=== PATIENT | male | born 1965 | race Caucasian/White ===

== ENCOUNTER → 2016-06-30 | Outpatient (CLI) | payer BC ==
--- NOTE | 2016-06-30 12:38 | CONS ---
DATE OF CONSULTATION: 06/30/2016 CONSULTATION/NEW PATIENT EVALUATION A 50-year-old gentleman who has been evaluated in the sleep center for obstructive sleep apnea-hypopnea syndrome. HISTORY OF PRESENT ILLNESS/SLEEP-WAKE EVALUATION: Patient had been diagnosed with obstructive sleep apnea about 5 years ago was started on treatment with CPAP at that time but was not able to use CPAP equipment secondary to technical problem and stopped using in several weeks. SLEEP SCHEDULE: Presently, his sleep schedule from 9 p.m. to 5:15 a.m. on working days and from around 10 p.m. to 6 a.m. on weekend. FALLING ASLEEP: No problem with falling asleep. No TV in bedroom. DURING SLEEP: He sleeps in different positions with loud snoring and witnessed episodes of stopped breathing during sleep by his . DURING THE DAY/WAKE STATE: In the morning, he wakes up tired, has difficulties to pay attention, irritability. [place] Sleepiness Scale is 8. No history of hypnagogic hallucinations, sleep paralysis or cataplexy. PAST MEDICAL HISTORY: Positive for hypertension, hyperlipidemia, acid reflux. PAST SURGICAL HISTORY: Cholecystectomy, hiatal hernia repair. MEDICATIONS: Lipitor, lisinopril. SOCIAL HISTORY: Negative for smoking. Alcohol consumption up to 2 times per week one pint of whiskey. FAMILY HISTORY: Hypertension, hyperlipidemia, emphysema, sleep apnea, snoring, pneumonia, insomnia, acid reflux, diabetes. REVIEW OF SYSTEMS: No fevers. No double vision. No recent chest pain. No shortness of breath. No abdominal pain. No bleeding episodes. No blood in urine. No seizure episodes. PHYSICAL EXAMINATION: During physical exam, a 50-year-old gentleman without distress. VITAL SIGNS: BP 143/77, HR 64, RR 16. Height 5 feet 10 inches. Weight 235. BMI 33.5. Neck 17 inches in circumference. Temp 98.3. Oxygen saturation at room air 98%. HEENT: PERRLA, EOMI. Evaluation of oropharynx showed moderately low position of soft palate. Some restriction of nasal breathing, more restricted on the left side. NECK: Supple. No JVD. Thyroid is not palpable. LUNGS: Clear to percussion and to auscultation. Good air exchange. No wheezing or rhonchi. HEART: S1, S2 regular. No murmurs, gallops or rubs. ABDOMEN: Slightly obese. EXTREMITIES: No clubbing or cyanosis. POWER SAW OPERATOR: Awake, alert, and oriented x3. Cranial nerves 2 to 7 intact. There is no fasciculation or atrophy noted. No focal deficits observed. IMPRESSION: 1. Snoring, witnessed episodes of stopped breathing during sleep, history of obstructive sleep apnea-hypopnea syndrome in the past, obstructive sleep apnea-hypopnea syndrome. 2. Obesity; body mass index of 33.5. 3. Hypertension. 4. Hyperlipidemia. 5. Status post cholecystectomy. 6. Status post hiatal hernia repair. PLAN: 1. Home sleep apnea test. 2. CPAP/BiPAP titration if sleep study confirms obstructive sleep apnea-hypopnea syndrome. 3. Preferable position during sleep on the side. 4. No driving if patient feels any sleepiness. Patient is aware of civil and criminal liability for unsafe driving. 5. I will see patient for follow-up visit to explain results of the testing and following plan. Thank you very much for referring this patient for consultation. Sincerely, Elgin Richardson MD, PhD, FAASM. Diplomat of [place] [employer], Sleep Medicine Board by [place] [employer] [place] [employer] [facility] [place]
== END | disposition home or self-care (01) ==
LOC: SLEEP 11:22
PROVIDERS: ATTEND Internal Medicine
DX: G47.33 Obstructive sleep apnea (adult) (pediatric) (principal); I10 Essential (primary) hypertension; E78.5 Hyperlipidemia, unspecified; E66.9 Obesity, unspecified; Z68.33 Body mass index [BMI] 33.0-33.9, adult; Z90.49 Acquired absence of other specified parts of digestive tract; Z98.890 Other specified postprocedural states
CPT/HCPCS: 99211

== ENCOUNTER → 2016-09-22 | Outpatient (CLI) | payer BC ==
--- NOTE | 2016-09-23 09:25 | PN ---
DATE OF SERVICE: 09/22/16 50 -year-old gentleman has been followed in the sleep center for treatment of severe obstructive sleep apnea/hypopnea syndrome. Recently the patient had home sleep apnea test and CPAP titration and I discussed results of the sleep study with the patient. The patient recently was started on treatment with CPAP and able to use equipment every night for the whole night. He feels better with that. He sleeps better. He feels better during the day. [place] sleep scale is 6. I checked the patients CPAP unit. CPAP pressure 6 9m water. Ramp is on automatic regimen. For the last month, the patient usage for more than 4 hours , 26 out of 30 nights his average usage is 7.1 hours. Pressure is 9 cm water. Apnea/hypopnea index is 5.8 with central apneas is 0.9. No problem with humidity . Sometimes mask goes off and the patient may wake up without mask. Medications are: 1. Lisinopril. 2. Lipitor. PHYSICAL EXAM: GENERAL: A pleasant patient without any distress. VITAL SIGNS: BP 117/80, HR 76, RR 16, weight 227. Temp 98.4, oxygen saturation on room air 95%. HEENT: PERRLA, EOMI. Evaluation of oropharynx shows moderately low position of soft palate. Short distance between soft palate and posterior pharyngeal wall. NECK: Supple. No JVD. Thyroid is not palpable. LUNGS: Clear to auscultation and percussion. Good air exchange. No wheezing or rhonchi. HEART: S1, S2 regular. No murmurs, gallops or rubs. ABDOMEN: Slightly obese. Soft, nontender. Bowel sounds are preset. No organomegaly appreciated. EXTREMITIES: No clubbing or cyanosis. BOTTLING ATTENDANT: Awake, alert and oriented times three. Cranial nerves 2 to 7 intact. There is no fasciculation or atrophy noted. No focal deficits observed. IMPRESSION: 1. Obstructive sleep apnea/hypopnea syndrome. The patient demonstrated good compliance with treatment benefitting from treatment. 2. Obesity. 3. Hypertension. 4. Hyperlipidemia. 5. Status post cholecystectomy. 6. Status post hiatal hernia repair. PLAN: 1. Continue treatment with CPAP. We will keep pressure the same, 9 cm water for the present time. 2. Losing weight. 3. Preferable position during sleep from the side. 4. No driving if feels any sleepiness. Thank you very much for allowing me to participate in the management of your patient. Sincerely, Elgin Richardson MD, PhD, FAASM Diplomat of [place] [employer]. Sleep Medicine Board by [place] [employer] [place] [employer] [facility]
== END | disposition home or self-care (01) ==
LOC: SLEEP 15:19
PROVIDERS: ATTEND Internal Medicine
DX: G47.33 Obstructive sleep apnea (adult) (pediatric) (principal); E66.9 Obesity, unspecified; I10 Essential (primary) hypertension; E78.5 Hyperlipidemia, unspecified; Z98.890 Other specified postprocedural states

== ENCOUNTER 2017-03-10 11:48 | Emergency (ER) | payer BC ==
[2017-03-10 11:57] VITALS: BP 138/98; PULSE 72; RESP 16; TEMP 97.8
[2017-03-10] MEDS ORDERED: IBUPROFEN 600 MG TAB PO STA (12:15)
--- NOTE | 2017-03-10 12:54 | ED ---
ENT HPI - General Chief complaint: ENT Stated complaint: Sore throat Time Seen by Provider: 03/10/17 12:03 Source: patient, RN notes reviewed Mode of arrival: ambulatory Limitations: no limitations - History of Present Illness Initial comments: This is a 51-year-old male who presents to the emergency department with chief complaint of sore throat. patient states that he noticed a swollen lymph node on the left side of his neck one week ago. He saw his doctor this Monday and patient states the doctors not concerned with the swollen lymph node. On Monday night, patient states that he developed a sore throat. On , the pain became worse and patient felt like he was unable to swallow due to the pain. He called his doctor who called in a prescription for azithromycin. Patient has taken 3 pills so far. Patient presented to the emergency department because he is concerned that he might become dehydrated as he has been unable to drink due to the pain. He states that he has had chills but has not had any recorded fevers. Denies chest pain, shortness of breath, abdominal pain, nausea or vomiting, constipation or diarrhea, dysuria or hematuria, numbness or tingling, or vision changes. - Related Data Home Medications Medication Instructions Recorded Confirmed Atorvastatin Calcium [Lipitor] 20 mg PO DAILY 07/15/15 09/25/15 Lisinopril [Prinivil] 20 mg PO QAM 07/15/15 09/25/15 Previous Rx's Medication Instructions Recorded Hydrocodone/Acetaminophen [[place] 1 tab PO Q4H PRN #40 tablet 08/22/15 7.5-325] Moxifloxacin HCl 400 mg PO DAILY #10 tab 09/18/15 Cyclobenzaprine [Flexeril] 10 mg PO TID #20 tab 09/26/15 Hydrocodone/Acetaminophen [[place] 1 each PO Q6HR PRN #20 tab 09/26/15 5-325] Allergies Allergy/AdvReac Type Severity Reaction Status Date / Time Penicillins Allergy Unknown Verified 03/10/17 11:54 Childhood Review of Systems ROS Statement: Those systems with pertinent positive or pertinent negative responses have been documented in the HPI. ROS Other: All systems not noted in ROS Statement are negative. Past Medical History Past Medical History: GERD/Reflux, Hyperlipidemia, Hypertension History of Any Multi-Drug Resistant Organisms: None Reported Past Surgical History: Cholecystectomy, Hernia Repair Past Anesthesia/Blood Transfusion Reactions: Family History of Problems w/ Anesthesia Additional Past Anesthesia/Blood Transfusion Reaction / Comment(s): mother-had time coming out Past Psychological History: No Psychological Hx Reported Smoking Status: Never smoker Past Alcohol Use History: Occasional Past Drug Use History: None Reported - Past Family History Brother(s) Additional Family Medical History / Comment(s): Patient has 2 brothers with no major medical problems. Patient does not have any sisters. Patient does not have any children. Mother Family Medical History: Diabetes Mellitus Additional Family Medical History / Comment(s): Mother is alive at age 77 with history of diabetes. Father Family Medical History: Deep Vein Thrombosis (DVT) Additional Family Medical History / Comment(s): at age 78 from renal failure with history of DVT many years ago. General Exam - General Exam Comments Initial Comments: General: Awake and alert, well-developed; in no apparent distress. Patient speaks in a hoarse voice. HEENT: Head atraumatic, normocephalic. Pupils are equal, round and reactive to light. Extraocular movements intact. Oropharynx moist with mild erythema. Right tonsil and uvula appears enlarged. Uvula is midline. Neck: Supple. Normal ROM. Tender tonsillar adenopathy. Cardiovascular: Regular rate and rhythm. No murmurs, rubs or gallops. Chest symmetrical. Respiratory: Lungs clear to auscultation bilaterally. No wheezes, rales or rhonchi. Normal respiratory effort with no use of accessory muscles. Musculoskeletal: Normal ROM, no tenderness bilateral upper and lower extremities. Ambulating normally. Skin: [place], warm and dry without rashes or lesions. Neurological: Alert and oriented x3. CN II-XII grossly intact. Speech is fluent and answers are appropriate. No focal neuro deficits. Psychiatric: Normal mood and affect. No overt signs of depression or anxiety noted. Limitations: no limitations Course Vital Signs 03/10/17 11:54 Temperature 97.8 F Pulse Rate 72 Respiratory 16 Rate Blood Pressure 138/98 O2 Sat by Pulse 96 Oximetry Medical Decision Making - Medical Decision Making This is a 51-year-old male who presents to the emergency department with chief complaint of sore throat. Rapid strep was negative. I informed patient that there could still be a 20% chance that he does have strep throat. Advised patient to finish his course of azithromycin. On physical examination, patient does have an enlarged right tonsil and mildly erythematous oropharynx. He states that he is having difficulty swallowing. I had him do a by mouth challenge with water and patient was able to drink successfully. Patient will be discharged home with a prescription for magic mouthwash. He was advised to swish 5 mLs 3 times a day for the next 3 days. He is to take ibuprofen or Tylenol as needed for pain and inflammation. Return parameters were discussed. Patient is in agreement with plan and voices understanding. All questions were answered. - Lab Data Lab Results 03/10/17 Range/Units 12:20 Group A Strep Rapid Negative (Negative) Disposition Clinical Impression: Tonsillitis Disposition: HOME SELF-CARE Condition: Good Instructions: Tonsillitis (ED) Additional Instructions: Please finish course of azithromycin. Please take medications as prescribed. Please follow up with primary care provider within 1-2 days. Return to emergency department if symptoms should worsen or any concerns arise. Referrals: Bishop Ortiz MD [Primary Care Provider] - 1-2 days Time of Disposition: 12:55
== END 2017-03-10 13:04 | disposition home or self-care (01) ==
LOC: EC 11:48
DX: J03.90 Acute tonsillitis, unspecified (principal); E78.5 Hyperlipidemia, unspecified; I10 Essential (primary) hypertension; Z79.899 Other long term (current) drug therapy; Z88.0 Allergy status to penicillin
CPT/HCPCS: 87081; 87430; 99283

== ENCOUNTER → 2017-03-14 | Outpatient (CLI) | payer BC ==
--- NOTE | 2017-03-14 08:47 | US ---
EXAMINATION TYPE: US abdomen complete DATE OF EXAM: 03/14/2017 COMPARISON: US & CT abdomen and pelvis September 26 2015 CLINICAL HISTORY: Upper abdominal Pain R10.10. Intermittent RUQ discomfort x 1 year, history of jyoti cystectomy EXAM MEASUREMENTS: Liver Length: 15.7 cm Gallbladder Wall: surgically absent CBD: 0.6 cm Spleen: 10.8 cm Right Kidney: 11.5 x 6.0 x 5.6 cm Left Kidney: 12.3 x 6.0 x 4.7 cm Pancreas: visualized portions wnl, head and tail obscured by overlying midline bowel gas Liver: somewhat course echotexture Gallbladder: surgically absent Evidence for sonographic Foster's sign: no CBD: visualized portions wnl, limited by overlying bowel gas Spleen: wnl Right Kidney: wnl Left Kidney: wnl Upper IVC: wnl Abd Aorta: visualized portions wnl, limited by overlying midline bowel gas The visualized liver is heterogeneously hyperechoic. The intrahepatic portion of the IVC and visuali zed abdominal aorta are within normal limits. Gallbladder is surgically absent. Common bile duct is unremarkable. The visualized portions of the pancreas are homogenous. The spleen is unremarkable. H ypodense area on CT posterior superior aspect is not clearly seen on ultrasound today, suspect interv al healing of laceration injury and resolution of adjacent hematoma. Kidneys are symmetric and free of hydronephrosis. No renal lesions are seen. IMPRESSION: Post cholecystectomy changes redemonstrated. Probable mild diffuse fatty infiltration of liver. No significant new acute finding identified.
== END | disposition home or self-care (01) ==
LOC: RADUSWWP 07:41
PROVIDERS: ATTEND Internal Medicine
DX: R10.10 Upper abdominal pain, unspecified (principal); Z90.49 Acquired absence of other specified parts of digestive tract
CPT/HCPCS: 76700